=== PATIENT | female | born 1980 | race Caucasian/White ===

== ENCOUNTER 2018-02-22 18:34 | Emergency (ER) | payer OTHER, MEDICAID ==
[2018-02-22 21:14] LABS: ADD MAN DIFF? NO
[2018-02-22 21:17] LABS: WHITE BLOOD COUNT 8.6 10^3/ul (4.8-10.8)
[2018-02-22 21:17] LABS: BASOPHILS % 0.3 % (0.0-2.0); EOSINOPHILS # 0.3 10^3/ul (0.0-0.5); EOSINOPHILS % 3.3 % (0.0-7.0); HEMATOCRIT 35.3 % (37.0-47.0); HEMOGLOBIN 11.6 g/dl (12.0-16.0); LYMPHOCYTES # 2.6 10^3/ul (0.8-2.9); LYMPHOCYTES % 29.7 % (15.0-51.0); MEAN CORPUSCULAR HEMOGLOBIN 30.4 pg (29.0-33.0); MEAN CORPUSCULAR HGB CONC 32.9 g/dl (32.0-37.0); MEAN CORPUSCULAR VOLUME 92.4 fl (82.0-101.0); MONOCYTE # 0.6 10^3/ul (0.3-0.9); MONOCYTES % 7.3 % (0.0-11.0); NEUTROPHILS % 58.4 % (39.0-77.0); PLATELET COUNT 284 10^3/UL (140-415); RED BLOOD COUNT 3.82 10^6/ul (4.20-5.40); RED CELL DISTRIBUTION WIDTH 12.9 % (11.5-14.5)
[2018-02-22 21:34] LABS: ANION GAP 9 (5-13); BLOOD UREA NITROGEN 7 mg/dl (7-20); CALCIUM 9.5 mg/dl (8.4-10.2); CARBON DIOXIDE 25 mmol/L (21-31); CHLORIDE 101 mmol/L (97-110); CREATININE 0.43 mg/dl (0.44-1.00); Estimated GFR > 60 mL/min (>60); GLUCOSE 87 mg/dl (70-220); POTASSIUM 3.8 mmol/L (3.5-5.1); SODIUM 135 mmol/L (135-144)
[2018-02-22 21:36] LABS: ADD UMIC YES; UR ASCORBIC ACID NEGATIVE (NEGATIVE); UR BACTERIA FEW /HPF (NONE SEEN); UR BILIRUBIN (Dip) NEGATIVE (NEGATIVE); UR BLOOD (Dip) 1+ mg/dL (NEGATIVE); UR CLARITY SLIGHTLY CLOUDY (CLEAR); UR COLOR STRAW (YELLOW); UR GLUCOSE (Dip) NEGATIVE (NEGATIVE); UR KETONES (Dip) NEGATIVE (NEGATIVE); UR LEUKOCYTE ESTERASE (Dip) NEGATIVE Leu/ul (NEGATIVE); UR NITRITE (Dip) NEGATIVE (NEGATIVE); UR RBC 2 /HPF (0-5); UR SPECIFIC GRAVITY (Dip) 1.008 (1.003-1.030); UR SQUAMOUS EPITHELIAL CELL FEW /HPF (FEW); UR TOTAL PROTEIN (Dip) NEGATIVE (NEGATIVE); UR UROBILINOGEN (Dip) NEGATIVE (NEGATIVE); UR WBC 3 /HPF (0-5)
[2018-02-22] MEDS: ACETAMINOPHEN 325 MG TAB PO (23:26)
== END 2018-02-22 23:54 | disposition home or self-care (01) ==
LOC: FTE 18:34
DX: O23.42 Unspecified infection of urinary tract in pregnancy, second trimester (principal); R10.2 Pelvic and perineal pain; Z3A.16 16 weeks gestation of pregnancy
CPT/HCPCS: 36415; 76805; 80048; 81001; 84702; 85025; 87591; 99284-25